=== PATIENT | female | born 1980 | race Hispanic/Latino ===

== ENCOUNTER 2016-09-09 19:59 | Inpatient (IN) | payer OTHER ==
[2016-09-09 22:05] LABS: BASO % 0.1 % (0.0-2.0); EOS % 0.5 % (0.0-4.0); LYMPH # 2.5 K/uL (1.0-4.3); LYMPH % 40.8 % (20.0-40.0); MEAN CELL VOLUME 96.6 fL (81.0-99.0); MEAN CORPUSCULAR HEMOGLOBIN 32.3 pg (27.0-31.0); MEAN CORPUSCULAR HGB CONC 33.5 g/dL (33.0-37.0); MEAN PLATELET VOLUME 9.2 fL (7.2-11.7); MONO # 0.4 K/uL (0.0-0.8); NRBC % 0.1 % (0.0-2.0); RED CELL DISTRIBUTION WIDTH 12.8 % (11.5-14.5); WHITE BLOOD COUNT 6.1 K/uL (4.8-10.8)
[2016-09-09 22:08] LABS: CHLORIDE 101 mmol/L (98-107)
[2016-09-09 22:09] LABS: POTASSIUM 3.7 mmol/L (3.6-5.2); SODIUM 140 mmol/L (132-148)
[2016-09-09 22:11] LABS: CARBON DIOXIDE 25 mmol/L (22-30); GFR AFRICAN-AMERICAN > 60
[2016-09-09 22:12] LABS: ALB/GLOB RATIO 1.3 (1.0-2.1); ALKALINE PHOSPHATASE 30 U/L (38-126); ALT/SGPT 25 U/L (9-52); AST/SGOT 23 U/L (14-36); BILIRUBIN,TOTAL 1.3 mg/dL (0.2-1.3); BLOOD UREA NITROGEN 13 mg/dL (7-17); CALCIUM 8.6 mg/dl (8.6-10.4); GLUCOSE,RANDOM 70 mg/dL (65-105); RBC URINE 2 /hpf (0-3); TOTAL PROTEIN 7.6 g/dL (6.3-8.3); URINE BACTERIA OCC (<OCC); URINE BILIRUBIN NEGATIVE (NEGATIVE); URINE BLOOD NEGATIVE (NEGATIVE); URINE COLOR Yellow (YELLOW); URINE GLUCOSE (UA) NORMAL (Normal); URINE KETONE NEGATIVE (NEGATIVE); URINE PROTEIN NEGATIVE (NEGATIVE); URINE UROBILINOGEN NORMAL mg/dL (0.2-1.0); WBC URINE 11 /hpf (0-5)
[2016-09-09 22:13] LABS: ALCOHOL SERUM 37 mg/dl (0-10)
[2016-09-09 22:14] LABS: URINE LEUKOCYTE ESTERASE 1+ Leu/uL (Negative)
--- NOTE | 2016-09-09 23:52 | C.PDOC ---
History Of Present Illness 35 year old female presents to the ER with suicidal and homicidal ideation that occurred for the past 2 weeks. Pt reports suicidal thoughts with plan of "jumping off building" with no previous attempts. Pt notes EtOH abuse but denies SOB, nausea, vomiting, diarrhea, or any other complaints. Pt placed on 1: 1 SI in ED. Time Seen by Provider: 09/09/16 21:20 Chief Complaint (Nursing): Psychiatric Evaluation History Per: Patient History/Exam Limitations: no limitations Onset/Duration Of Symptoms: Days Current Symptoms Are (Timing): Still Present Severity: Mild Associated Symptoms: Depression, Suicidal Thoughts, Suicidal Plan Past Medical History Reviewed: Historical Data, Nursing Documentation, Vital Signs Vital Signs: Last Vital Signs Temp 98.3 F 09/09/16 20:16 Pulse 88 09/09/16 20:16 Resp 18 09/09/16 20:16 BP 127/80 09/09/16 20:16 Pulse Ox 98 09/10/16 00:44 - Medical History PMH: Denies: Diabetes, Hepatitis, HIV, HTN, Seizures, Sexually Transmitted Disease Family History: States: Unknown Family Hx - Social History Hx Alcohol Use: Yes Hx Substance Use: Yes - Immunization History Hx Tetanus Toxoid Vaccination: No Hx Influenza Vaccination: No Hx Pneumococcal Vaccination: No Review Of Systems Except As Marked, All Systems Reviewed And Found Negative. Constitutional: Positive for: Other (EtOH abuse) Respiratory: Negative for: Shortness of Breath Gastrointestinal: Negative for: Nausea, Vomiting, Diarrhea Psych: Positive for: Depression, Suicidal ideation Physical Exam - Physical Exam Appears: Non-toxic, No Acute Distress, Other (EtOH intoxication) Skin: Warm, Dry Head: Atraumatic, Normacephalic Cardiovascular: Rhythm Regular, No Murmur Respiratory: Normal Breath Sounds, No Rales, No Rhonchi, No Wheezing Gastrointestinal/Abdominal: Soft, No Tenderness Neurological/Psych: Oriented x3, Normal Speech, Normal Cognition Gait: Steady ED Course And Treatment - Laboratory Results Result Diagrams: 09/09/16 21:50 09/09/16 21:50 O2 Sat by Pulse Oximetry: 98 (Room air) Pulse Ox Interpretation: Normal - Radiology CXR: Interpreted by Tx CXR Interpretation: Yes: No Acute Disease Progress Note: 0030: eval by Crisis- pending transfer- EKG/CXR ordered Reevaluation Time: 00:45 Reassessment Condition: Improved Medical Decision Making Medical Decision Making: Impression: 35 year old female presents with suicidal thoughts and depression for 2 weeks. Pt placed on 1:1 SI in ED. Plan: -Labs -Urinalysis -Reassess and disposition Disposition - Disposition Referrals: Non [facility] Provider, [Primary Care Provider] - Disposition: OTHER INSTITUTION Disposition Time: 01:00 Condition: GOOD - Clinical Impression Clinical Impression: Suicidal ideation Physician Patient Turnover Patient Signed Over To: Saumya Mccormick Handoff Comments: f/u EKG- pending psych transfer
--- NOTE | 2016-09-10 15:20 | RAD ---
HISTORY: psych ADM COMPARISON: No prior. FINDINGS: LUNGS: No active pulmonary disease. PLEURA: No significant pleural effusion identified, no pneumothorax apparent. CARDIOVASCULAR: Normal. OSSEOUS STRUCTURES: No significant abnormalities. VISUALIZED UPPER ABDOMEN: Normal. OTHER FINDINGS: None. IMPRESSION: No active disease.
[2016-09-10 19:48] VITALS: O2SAT 100
[2016-09-10] MEDS ORDERED: Influenza Virus Vaccine 45 mcg/0.5 ml Syr IM ONE (23:56)
[2016-09-10] MEDS ORDERED: Pneumococcal 23-Valent Vaccine IM ONE (23:56)
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
--- NOTE | 2016-09-12 23:07 | PCM.PYCHPN ---
Psychiatric Progress Note - Psychiatric Progress Note Patient seen today, length of contact: 17 min Patient Chief Complaint: "I'm in a mental villanueva, what can I say?" Problems Identified/Issues Discussed: The patient is seen, chart reviewed and case discussed. The patient gave permission to the travel writer to speak with her cousin, Kaur, and travel writer called her at [phone]. According to Kaur, the patient was contemplating suicide by jumping off [place] [place] [address] [place] where she used to live. She also was "out of control" and had "over inflated ego, was very argumentative, in and out of reality, squatting in an apartment without running water or heat and she was fired 7 times from 7 jobs recently." Kaur believes that patient's parents ignored her mental illness because they were too uatsdin and thought that praying would help her. The patient agrees with this presentation but states that she is doing better now and she agrees that she has bipolar disorder and again agrees to comply with medications. She is still somewhat irate, labile and depressed. However she denies any suicide plan or ideation at this point. She agrees to follow her safety plan. risks of meds discussed. Medication Change: Yes (abilify) Medical Record Reviewed: Yes Mental Status Examination - Cognitive Function Orientation: Person, Place, Situation, Time Memory: Impaired Attention: Poor Concentration: Poor Association: Loose Fund of Knowledge: WNL - Mood Mood: Depressed, Anxious - Affect Affect: Constricted, Other (labile) - Speech Speech: Pressured (slightly) - Formal Thought Process Formal Thought Process: No Impairment - Suicidal Ideation Suicidal Ideation: No - Homicidal Ideation Homicidal Ideation: No Goal/Treatment Plan - Goal/Treatment Plan Need for Continued Stay: Severe depression anxiety, Discharge may exacerbated symptoms, Severe functional impairment Progress Toward Problem(s) and Goals/Treatment Plan: Bipolar mixed: - Abilify 5, then 10, then 15 and on if needed - Seroquel 50 HS - Support and psychoed - Attend groups and activities - Safety plan Estimated Date of D/C: 09/19/16 - Smoking Cessation Smoking Cessation Initiated: Yes
--- NOTE | 2016-09-13 13:23 | PCM.PYCHPN ---
Psychiatric Progress Note - Psychiatric Progress Note Patient seen today, length of contact: 17 min Patient Chief Complaint: "I'm not well" Problems Identified/Issues Discussed: The patient is seen, chart reviewed and case discussed. Bipolar d/o discussed Support and psychoed given She is interested in rehab in a [place] program Meds discussed CBt and CA used Slowly improving Medication Change: Yes (abilify increased) Medical Record Reviewed: Yes Mental Status Examination - Cognitive Function Orientation: Person, Place, Situation, Time Memory: Impaired Attention: Poor Concentration: Poor Association: Loose Fund of Knowledge: WNL - Mood Mood: Depressed, Anxious - Affect Affect: Constricted, Other (labile) - Speech Speech: Pressured (slightly) - Formal Thought Process Formal Thought Process: No Impairment - Suicidal Ideation Suicidal Ideation: No - Homicidal Ideation Homicidal Ideation: No Goal/Treatment Plan - Goal/Treatment Plan Need for Continued Stay: Severe depression anxiety, Discharge may exacerbated symptoms, Severe functional impairment Progress Toward Problem(s) and Goals/Treatment Plan: Bipolar mixed: - Abilify 5, then 10, then 15 and on if needed - Seroquel 50 HS - Support and psychoed - Attend groups and activities - Safety plan discussed Estimated Date of D/C: 09/19/16
--- NOTE | 2016-09-14 12:03 | PCM.PYCHPN ---
Psychiatric Progress Note - Psychiatric Progress Note Patient seen today, length of contact: 18 min Patient Chief Complaint: "I couldn;t sleep at all" Problems Identified/Issues Discussed: The patient is seen, chart reviewed and case discussed. Still having mixed sxs, insomnia, racing thoughts, low self esteem More future oriented - Happy to hear family is willing to pay for private rehab Not suicidal, denies being anorexic/bulimic Support and CBT provided Medication Change: Yes (seroquel increased) Medical Record Reviewed: Yes Mental Status Examination - Cognitive Function Orientation: Person, Place, Situation, Time Memory: Impaired Attention: Poor Concentration: Poor Association: Loose Fund of Knowledge: WNL - Mood Mood: Depressed, Anxious - Affect Affect: Constricted, Other (labile) - Speech Speech: Pressured (slightly) - Formal Thought Process Formal Thought Process: No Impairment - Suicidal Ideation Suicidal Ideation: No - Homicidal Ideation Homicidal Ideation: No Goal/Treatment Plan - Goal/Treatment Plan Need for Continued Stay: Severe depression anxiety, Discharge may exacerbated symptoms, Severe functional impairment Progress Toward Problem(s) and Goals/Treatment Plan: Bipolar mixed: - Abilify 10 mg now, 15 mg tomorrow - Seroquel 100 HS NEW dose - Support and psychoed - Attend groups and activities - Safety plan discussed Estimated Date of D/C: 09/19/16
--- NOTE | 2016-09-15 14:29 | PCM.PYCHPN ---
Psychiatric Progress Note - Psychiatric Progress Note Patient seen today, length of contact: 17 min Patient Chief Complaint: "A little better" Problems Identified/Issues Discussed: The patient is seen, chart reviewed and case discussed. Support and CBT provided Imroving but needs more time No SEs from [facility] is recommended to her and her cousin Kaur who is helping her Medication Change: Yes (seroquel increased) Medical Record Reviewed: Yes Mental Status Examination - Cognitive Function Orientation: Person, Place, Situation, Time Memory: Impaired Attention: Poor Concentration: Poor Association: Loose Fund of Knowledge: WNL - Mood Mood: Depressed, Anxious - Affect Affect: Constricted, Other (labile) - Speech Speech: Pressured (slightly) - Formal Thought Process Formal Thought Process: No Impairment - Suicidal Ideation Suicidal Ideation: No - Homicidal Ideation Homicidal Ideation: No Goal/Treatment Plan - Goal/Treatment Plan Need for Continued Stay: Severe depression anxiety, Discharge may exacerbated symptoms, Severe functional impairment Progress Toward Problem(s) and Goals/Treatment Plan: Bipolar mixed: - Abilify 10 mg now, 15 mg tomorrow - Seroquel 100 HS NEW dose - Support and psychoed - Attend groups and activities - Safety plan discussed Estimated Date of D/C: 09/19/16
--- NOTE | 2016-09-16 14:47 | PCM.PYCHPN ---
Psychiatric Progress Note - Psychiatric Progress Note Patient seen today, length of contact: 17 min Patient Chief Complaint: "Nothing new" Problems Identified/Issues Discussed: The patient is seen, chart reviewed and case discussed. Support and CBT provided again Bernabe but needs more time, as she is still NOT sure where she will go upon d/ c on Monday No SEs from meds reported, Abilify is being increased. [facility] is recommended again. Medication Change: Yes (abilify increased) Medical Record Reviewed: Yes Mental Status Examination - Cognitive Function Orientation: Person, Place, Situation, Time Memory: Impaired Attention: Poor Concentration: Poor Association: Loose Fund of Knowledge: WNL - Mood Mood: Depressed, Anxious - Affect Affect: Constricted, Other (labile) - Speech Speech: Pressured (slightly) - Formal Thought Process Formal Thought Process: No Impairment - Suicidal Ideation Suicidal Ideation: No - Homicidal Ideation Homicidal Ideation: No Goal/Treatment Plan - Goal/Treatment Plan Need for Continued Stay: Severe depression anxiety, Discharge may exacerbated symptoms, Severe functional impairment Progress Toward Problem(s) and Goals/Treatment Plan: Bipolar mixed: - Abilify 15 mg and will be 20 mg as final dose - Seroquel 100 HS NEW dose - Support and psychoed - Attend groups and activities - Safety plan discussed Estimated Date of D/C: 09/19/16
--- NOTE | 2016-09-17 14:39 | PCM.PYCHPN ---
Psychiatric Progress Note - Psychiatric Progress Note Patient seen today, length of contact: 15 minutes Patient Chief Complaint: I'm feeling much better Problems Identified/Issues Discussed: Patient seen. Chart reviewed. Case discussed with the staff. Issues related to illness and treatment were discussed with the patient. Reported compliant with treatment with no adverse affects. Tolerating treatment very well. Feels much better with the treatment. At the time of evaluation, patient was awake alert oriented 3, had no delusions, no auditory or visual hallucinations, no suicidal ideations or homicidal ideations. Medical Problems: None reported Diagnostic Results: Reviewed DSM 5 Symptoms Update: Improving with treatment Medication Change: No Medical Record Reviewed: Yes Mental Status Examination - Cognitive Function Orientation: Person, Place, Situation, Time Memory: Intact, Impaired Attention: WNL Concentration: WNL Association: WNL Fund of Knowledge: [facility] Decription of patient's judgement and insights: Fair - Mood Mood: Depressed (Much less depressed than before) - Affect Affect: Other (Appropriate) - Speech Speech: Appropriate, Pressured (slightly) - Formal Thought Process Formal Thought Process: No Impairment Psychotic Thoughts and Behaviors: Fair - Suicidal Ideation Suicidal Ideation: No - Homicidal Ideation Homicidal Ideation: No Goal/Treatment Plan - Goal/Treatment Plan Need for Continued Stay: Remain at risks for inpatient hospitalization, Discharge may exacerbated symptoms, Severe functional impairment Progress Toward Problem(s) and Goals/Treatment Plan: Patient education Supportive therapy Urinalysis, repeat Continue rest of the treatment as before Estimated Date of D/C: 09/19/16 - Smoking Cessation Smoking Cessation Initiated: Yes
[2016-09-18 07:19] VITALS: RESP 16; TEMP 98.7
--- NOTE | 2016-09-18 12:27 | PCM.PYCHPN ---
Psychiatric Progress Note - Psychiatric Progress Note Patient seen today, length of contact: 15 minutes Patient Chief Complaint: I'm feeling much better Problems Identified/Issues Discussed: Patient seen. Chart reviewed. Case discussed with the staff. Issues related to illness and treatment were discussed with the patient. Reported compliant with treatment with no adverse affects. Tolerating treatment very well. Feels much better with the treatment. At the time of evaluation, patient was awake alert oriented 3, had no delusions, no auditory or visual hallucinations, no suicidal ideations or homicidal ideations. Medical Problems: None reported Diagnostic Results: Reviewed DSM 5 Symptoms Update: Improving with treatment Medication Change: No Medical Record Reviewed: Yes Mental Status Examination - Cognitive Function Orientation: Person, Place, Situation, Time Memory: Intact Attention: WNL Concentration: WNL Association: WNL Fund of Knowledge: [facility] Decription of patient's judgement and insights: Fair - Mood Mood: Neutral - Affect Affect: Other (Appropriate) - Speech Speech: Appropriate - Formal Thought Process Formal Thought Process: No Impairment Psychotic Thoughts and Behaviors: None - Suicidal Ideation Suicidal Ideation: No - Homicidal Ideation Homicidal Ideation: No Goal/Treatment Plan - Goal/Treatment Plan Need for Continued Stay: Remain at risks for inpatient hospitalization, Discharge may exacerbated symptoms, Severe functional impairment Progress Toward Problem(s) and Goals/Treatment Plan: Patient education Supportive therapy Continue rest of the treatment as before Estimated Date of D/C: 09/19/16 - Smoking Cessation Smoking Cessation Initiated: Yes
[2016-09-18 16:01] LABS: RBC URINE 5 /hpf (0-3); URINE BACTERIA OCC (<OCC); URINE BILIRUBIN NEGATIVE (NEGATIVE); URINE BLOOD NEGATIVE (NEGATIVE); URINE COLOR Yellow (YELLOW); URINE GLUCOSE (UA) NORMAL (Normal); URINE KETONE NEGATIVE (NEGATIVE); URINE LEUKOCYTE ESTERASE NEG Leu/uL (Negative); URINE PROTEIN NEGATIVE (NEGATIVE); URINE UROBILINOGEN NORMAL mg/dL (0.2-1.0); WBC URINE 5 /hpf (0-5)
[2016-09-18 16:11] VITALS: BP 112/73; PULSE 103
--- NOTE | 2016-09-19 08:58 | PCM.PYCHDC ---
Mental Status Examination - Mental Status Examination Orientation: Person, Place, Situation, Time Memory: Intact Mood: Anxious Affect: Broad Speech: Appropriate Attention: WNL Concentration: WNL Association: WNL Fund of Knowledge: WNL Formal Thought Process: No Impairment Suicidal Ideation: No Current Homicidal Ideation?: No Discharge Summary - Discharge Note Reason for Hospitalization: Manic and depressive sxs, SI [place] . She was not taking care of self, not eating, not cleaning and had flight of ideas and got fired form "7 jobs in a year" Laboratory Data: Abnormal Lab Results 09/18/16 15:53 Urine Color Yellow Urine Clarity Hazy Urine pH 5.0 Ur Specific [place] 1.025 Urine Protein Negative Urine Glucose (UA) Normal Urine Ketones Negative Urine Blood Negative Urine Nitrate Negative Urine Bilirubin Negative Urine Urobilinogen Normal Ur Leukocyte Esterase Neg Urine WBC (Auto) 5 Urine RBC (Auto) 5 H Ur Squamous Epith Cells 3 Urine Bacteria Occ H Consultations:: List each consultation separately and include: 1. Reason for request. 2. Findings. 3. Follow-up Summary of Hospital Course include:: 1. Description of specific treatment plan utilized for patients during their course of treatmen. 2. Summarize the time- course for resolution of acute symptoms and/or regressed behaviors. 3. Describe issues identified and worked on during hospitalization. 4. Describe medication utilized. 5. Describe medical problems identified and treated. 6. Reassessment of suicide risk Summary of Hospital Course: Hospital course: The pt was admitted and started on treatment with psychotherapy, support, psychoeducation and medications. OK (to motivate into treatment) and CBT used. The pt attended groups and activities, as well as milieu therapy. All the risks and benefits of medications are discussed and the patient understood and agreed. After care discussed with the patient. She was practicaly homeless now and he rfamily insisted she go to a rehab, even though she did not have any significant drug use except for some MJ "which is legal in [place]!" she said. They found a private place in [place] and she is dc'ed there. Her cousin Kaur was very helpful and health science writer spoke to her few times. Pt was cooperative and pleasant, improved with meds and therapy. Her insight increased remarkably. - Final Diagnosis (DSM 5) Condition upon Discharge: STABLE DSM 5: Bipolar d/o - mixed - severe Disposition: REHAB FACILITY/REHAB UNIT Follow-up Treatment Plan: Continue below medications after discharge. Follow after care plan as discussed. Private rehab in [place], named [facility]. Use relapse prevention skills Return to ER or call 911 if suicidal, homicidal or symptoms relapse. Stay away from stress, alcohol and drugs. Prescriptions/Medication Reconciliation: ARIPiprazole [Abilify] 15 mg PO QPM #30 tab QUEtiapine [Seroquel] 50 mg PO HS #30 tab - Smoking Cessation Smoking Cessation Medication prescribed: No - Antipsychotic Medications Pt discharged on 2 or more routine antipsychotic medications: Yes - Justification for 2 or more meds Plan to taper monotherapy: List medications: She will stop seroquel soon, which is given for insomnia only.
--- NOTE | 2016-09-19 22:21 | CARD ---
APPROVED REPORT EKG Measurement Heart [id number] <Conclusion> Normal sinus rhythm Normal ECG
== END 2016-09-19 13:05 | disposition home or self-care (01) | DRG 430 ==
LOC: C.ER 19:59 → SUPCPDRO 19:59 → C.9OBSV 09-10 00:48 → OBSVTOIN 09-10 21:23 → C.5E 09-10 21:36
PROVIDERS: ADMIT Psychiatry & Neurology Psychiatry; ATTEND Psychiatry & Neurology Psychiatry
DX: F31.60 Bipolar disorder, current episode mixed, unspecified (principal); R45.851 Suicidal ideations; F10.10 Alcohol abuse, uncomplicated